=== PATIENT | female | born 1995 | race Hispanic/Latino ===

== ENCOUNTER 2023-10-21 20:10 | Emergency (ER) | payer BC, OTHER, SELFPAY ==
[2023-10-21] MEDS ORDERED: predniSONE 20 MG TAB ONE (20:43)
[2023-10-21] MEDS ORDERED: Albuterol 2.5 MG (3 mL) NEB ONE (20:43)
== END 2023-10-21 21:50 | disposition home or self-care (01) ==
LOC: NAV ERS 20:10
DX: J45.901 Unspecified asthma with (acute) exacerbation (principal)
CPT/HCPCS: 71046; 93005; 94640; 94664; J7512; J7611